=== PATIENT | female | born 1950 | race Caucasian/White ===

== ENCOUNTER 2018-10-24 08:07 | Emergency (ER) | payer MEDICARE, OTHER ==
[2018-10-24 08:59] VITALS: BP 148/84
--- NOTE | 2018-10-24 09:14 | UC ---
General HPI - HPI Summary HPI Summary: per triage, PT RECENTLY TRAVELED TO [place], [place], [place], CDC ADVISORY CHECKED. NO TRAVEL WARNINGS OF THESE AREAS. [ End ] per triage,SORE THROAT FOR THREE DAYS, YESTERDAY EAR PAIN AND PRESSURE, SLIGHT COUGH. SINUS CONGESTION . BODYACHES, NO HEADACHE. FELT FEVERISH THIS MORNING. NO NAUSEA OR VOMITING. [ End ] - History of Current Complaint Chief Complaint: UCRespiratory Stated Complaint: FEVER,THROAT,EARS Time Seen by Provider: 10/24/18 08:42 Hx Obtained From: Patient Onset/Duration: Gradual Onset Timing: Constant Pain Intensity: 7 Associated Signs & Symptoms: Negative: Cough, Chest Pain, Diarrhea, Nausea, SOB , Vomiting - Allergy/Home Medications Allergies/Adverse Reactions: Allergies Allergy/AdvReac Type Severity Reaction Status Date / Time erythromycin base Allergy Severe headaches Verified 10/24/18 08:41 Iodine and Iodide Containing Allergy Severe Anaphylatic Verified 10/24/18 08:41 Produc Shock shrimp Allergy Severe Anaphylatic Verified 10/24/18 08:41 Shock wheat germ Allergy Severe hives, Uncoded 10/24/18 08:41 swelling of face Home Medications: Home Medications Anastrozole [Arimidex] 1 mg PO DAILY 10/24/18 [History Confirmed 10/24/18] Aspirin 81 mg CHEW TAB* [Aspirin Low Dose TAB*] 81 mg PO DAILY 10/24/18 [ History Confirmed 10/24/18] Biotin 1 mg PO DAILY 10/24/18 [History Confirmed 10/24/18] Calcium Carb/Vitamin D3/Vit K1 [Calcium + D] 1 chw PO DAILY 10/24/18 [History Confirmed 10/24/18] Cranberry 400 mg PO DAILY 10/24/18 [History Confirmed 10/24/18] DOXYcycline CAP(*) [DOXYcycline 100MG CAP(*)] 100 mg PO DAILY 10/24/18 [History Confirmed 10/24/18] Ibuprofen TAB* [Advil TAB*] 400 mg PO Q6H PRN 10/24/18 [History Confirmed ] [place]-3 Fatty Acids/Fish Oil [Fish Oil 1,000 mg Softgel] 1 each PO DAILY [History Confirmed 10/24/18] Pravastatin (NF) [Pravachol (NF)] 10 mg PO DAILY 10/24/18 [History Confirmed ] Ubidecarenone [Co Q-10] 30 mg PO DAILY 10/24/18 [History Confirmed 10/24/18] PMH/Surg Hx/FS Hx/Imm Hx - Additional Past Medical History Additional PMH: CA-breast, rosacea Endocrine History: Dyslipidemia - Surgical History Surgical History: Yes Surgery Procedure, Year, and Place: LEFT BREAST LUMPECTOMY. LEFT SHOULDER ORTHOSCOPY. RIGHT TOE SURGERY. D&C. COMPLETE HYSTERECTOMY. TONSILLECTOMY. - Family History Known Family History: Positive: Non-Contributory - Social History Occupation: Retired Lives: With Family Alcohol Use: Occasionally Substance Use Type: None Smoking Status (MU): Never Smoked Tobacco Review of Systems All Other Systems Reviewed And Are Negative: No Eyes: Negative: Drainage, Eye Redness Physical Exam Triage Information Reviewed: Yes Appearance: Well-Appearing Vital Signs: Initial Vital Signs Temp 100 F 10/24/18 08:46 Pulse 88 10/24/18 08:46 Resp 18 10/24/18 08:46 BP 148/84 10/24/18 08:46 Pulse Ox 97 10/24/18 08:46 Vital Signs Reviewed: Yes Eyes: Positive: Conjunctiva Clear ENT: Positive: Pharyngeal erythema - mild, Nasal congestion, TMs normal - canals are clear and no mastoid tenderness., Uvula midline. Negative: Trismus, Muffled voice, Hoarse voice Neck: Positive: Supple, Nontender, Enlarged Nodes @ - peritonsilar Respiratory: Positive: Lungs clear, Normal breath sounds Cardiovascular: Positive: RRR, No Murmur Neurological: Positive: Alert Psychological: Positive: Age Appropriate Behavior Skin Exam: Normal Course/Dx - Differential Dx - Multi-Symptom Differential Diagnoses: Other - rapid strep=negative. non toxic. antibiotic not indicated. - Diagnoses Provider Diagnosis: URI (upper respiratory infection), Sore throat Discharge ED - Sign-Out/Discharge Documenting (check all that apply): Patient Departure All imaging exams completed and their final reports reviewed: No Studies - Discharge Plan Condition: Stable Disposition: HOME Patient Education Materials: Upper Respiratory Infection (DC), Pharyngitis (ED) Additional Instructions: FOLLOW UP WITH YOUR PRIMARY CARE IF NOT BETTER IN 5-7 DAYS. RECHECK SOONER FOR ANY WORSENING. - Billing Disposition and Condition Condition: STABLE Disposition: Home
[2018-10-24] MEDS ORDERED: Ibuprofen ADULT LIQ* 600 MG/30 ML UDC PO ONE (09:18)
[2018-10-24] MEDS ORDERED: Lidocaine 2% VISCOUS* 15 ML UDC PO ONE (09:18)
== END 2018-10-24 09:40 | disposition home or self-care (01) ==
LOC: UCCORT 08:07
DX: J06.9 Acute upper respiratory infection, unspecified (principal); J02.9 Acute pharyngitis, unspecified; Z79.82 Long term (current) use of aspirin; E78.5 Hyperlipidemia, unspecified; Z88.1 Allergy status to other antibiotic agents
CPT/HCPCS: 87651; 99201; A9270-GY; G0463